=== PATIENT | female | born 1965 | race Caucasian/White ===

== ENCOUNTER 2016-07-31 18:18 | Emergency (ER) | payer OTHER ==
[2016-07-31 18:52] VITALS: TEMP 98.8
[2016-07-31] MEDS ORDERED: SODIUM CHLORIDE 0.9% 1,000 ML IV STA ×2 (19:01→19:06)
[2016-07-31] MEDS ORDERED: SODIUM CHLORIDE 0.9% 500 ML IV STA (19:06)
[2016-07-31 19:09] LABS: Glucose,Whole Blood 117 mg/dL (75-99)
--- NOTE | 2016-07-31 19:21 | ED ---
General Adult HPI - General Chief complaint: Dizziness Stated complaint: High blood pressure, diabetic Time Seen by Provider: 07/31/16 18:58 Source: patient, RN notes reviewed, old records reviewed Mode of arrival: wheelchair Limitations: no limitations - History of Present Illness Initial comments: This is a 50-year-old female here for evaluation. Patient immediately there is a possible he exhaustion. Patient states she does not feel well, was on the movement of both no air-conditioning. States she's been dehydrated and feels very thirsty, dry mucous membranes, no urinary output. - Related Data Home Medications Medication Instructions Recorded Confirmed ALPRAZolam [Xanax] 0.5 mg PO Q6H PRN 07/31/16 07/31/16 Aspirin 650 mg PO DAILY PRN 07/31/16 07/31/16 Baclofen [Lioresal] 20 mg PO Q4-6H 07/31/16 07/31/16 Baclofen [Lioresal] 40 mg PO HS 07/31/16 07/31/16 Dicyclomine [Bentyl] 20 mg PO QID 07/31/16 07/31/16 Furosemide [Lasix] 20 mg PO DAILY PRN 07/31/16 07/31/16 Gabapentin [Neurontin] 400 mg PO 5XD 07/31/16 07/31/16 HYDROcodone/APAP 7.5-325MG [[place] 1 tab PO Q8H PRN 07/31/16 07/31/16 7.5-325] Losartan [Cozaar] 50 mg PO DAILY 07/31/16 07/31/16 Magnesium Oxide [Magnesium] 500 mg PO BID 07/31/16 07/31/16 Medroxyprogesterone Acetate 150 mg IM Q90D 07/31/16 07/31/16 [Depo-Provera] Meloxicam 15 mg PO DAILY 07/31/16 07/31/16 Methylphenidate HCl [Ritalin] 5 mg PO TID 07/31/16 07/31/16 Metoprolol Tartrate [Lopressor] 100 mg PO BID 07/31/16 07/31/16 Multivit-Min/Iron/Folic/Lutein 1 tab PO DAILY 07/31/16 07/31/16 [Centrum Silver Women Tablet] Nortriptyline [Pamelor] 25 mg PO HS 07/31/16 07/31/16 Pseudoephedrine [Sudafed] 30 mg PO Q4H PRN 07/31/16 07/31/16 SUMAtriptan SUCCINATE [Imitrex] 100 mg PO BID PRN 07/31/16 07/31/16 metFORMIN HCL ER [Glucophage Xr] 500 mg PO BID 07/31/16 07/31/16 Allergies Allergy/AdvReac Type Severity Reaction Status Date / Time metronidazole [From Flagyl] Allergy Unknown Verified 07/31/16 19:34 morphine Allergy Unknown Verified 07/31/16 19:34 Review of Systems ROS Statement: Those systems with pertinent positive or pertinent negative responses have been documented in the HPI. ROS Other: All systems not noted in ROS Statement are negative. Past Medical History Past Medical History: Diabetes Mellitus, Hypertension Additional Past Medical History / Comment(s): neuropathy History of Any Multi-Drug Resistant Organisms: None Reported Past Surgical History: Section Additional Past Surgical History / Comment(s): vein stripping Past Psychological History: No Psychological Hx Reported Smoking Status: Current every day smoker Past Alcohol Use History: Occasional Past Drug Use History: None Reported General Exam Limitations: no limitations General appearance: alert, in no apparent distress Head exam: Present: atraumatic, normocephalic, normal inspection Eye exam: Present: normal appearance, PERRL, EOMI. Absent: scleral icterus, conjunctival injection, periorbital swelling ENT exam: Present: normal exam, mucous membranes moist Neck exam: Present: normal inspection. Absent: tenderness, meningismus, lymphadenopathy Respiratory exam: Present: normal lung sounds bilaterally. Absent: respiratory distress, wheezes, rales, rhonchi, stridor Cardiovascular Exam: Present: regular rate, normal rhythm, normal heart sounds. Absent: systolic murmur, diastolic murmur, rubs, gallop, clicks GI/Abdominal exam: Present: soft, normal bowel sounds. Absent: distended, tenderness, guarding, rebound, rigid Extremities exam: Present: normal inspection, full ROM, normal capillary refill. Absent: tenderness, pedal edema, joint swelling, calf tenderness Back exam: Present: normal inspection Neurological exam: Present: alert, oriented X3, CN II-XII intact Psychiatric exam: Present: normal affect, normal mood Skin exam: Present: warm, dry, intact, normal color. Absent: rash Course Vital Signs 07/31/16 07/31/16 18:47 20:42 Temperature 98.8 F Pulse Rate 70 78 Respiratory 20 16 Rate Blood Pressure 148/82 147/101 O2 Sat by Pulse 98 96 Oximetry - Reevaluation(s) Reevaluation #1: symptoms are resolved EKG Findings - EKG Comments: EKG Findings:: EKG shows normal sinus rhythm rate of 73, MA 180, QRS 90, QTc 456 Medical Decision Making - Medical Decision Making 50 female ot ED w dehydration and heat exhaustion at this point feeling better and asymptomatic, ok for discharfege - Lab Data Result diagrams: 07/31/16 19:20 07/31/16 19:20 Lab Results 07/31/16 07/31/16 07/31/16 Range/Units 19:08 19:20 19:20 WBC 11.5 H (3.8-10.6) k/uL RBC 4.68 (3.80-5.40) m/uL Hgb 15.6 (11.4-16.0) gm/dL Hct 47.4 H (34.0-46.0) % MCV 101.4 H (80.0-100.0) fL MCH 33.3 (25.0-35.0) pg MCHC 32.8 (31.0-37.0) g/dL RDW 12.6 (11.5-15.5) % Plt Count 241 (150-450) k/uL Neutrophils % 81 % Lymphocytes % 14 % Monocytes % 2 % Eosinophils % 1 % Basophils % 0 % Neutrophils # 9.3 H (1.3-7.7) k/uL Lymphocytes # 1.7 (1.0-4.8) k/uL Monocytes # 0.2 (0-1.0) k/uL Eosinophils # 0.2 (0-0.7) k/uL Basophils # 0.0 (0-0.2) k/uL PT (9.0-12.0) sec INR (<1.1) APTT (22.0-30.0) sec Sodium 142 (137-145) mmol/L Potassium 4.8 (3.5-5.1) mmol/L Chloride 107 (98-107) mmol/L Carbon Dioxide 22 (22-30) mmol/L Anion Gap 13 mmol/L BUN 17 (7-17) mg/dL Creatinine 0.87 (0.52-1.04) mg/dL Est GFR (MDRD) Af Amer >60 (>60 ml/min/1.73 sqM) Est GFR (MDRD) Non-Af >60 (>60 ml/min/1.73 sqM) Glucose 123 H (74-99) mg/dL POC Glucose (mg/dL) 117 H (75-99) mg/dL POC Glu [employer]st ID Noemi Reid Calcium 10.4 H (8.4-10.2) mg/dL Phosphorus 5.4 H (2.5-4.5) mg/dL Magnesium 2.5 H (1.6-2.3) mg/dL Total Bilirubin 0.9 (0.2-1.3) mg/dL AST 32 (14-36) U/L ALT 42 (9-52) U/L Alkaline Phosphatase 107 (38-126) U/L Total Creatine Kinase (30-135) U/L CK-MB (CK-2) (0.0-2.4) ng/mL CK-MB (CK-2) Rel Index Troponin I (0.000-0.034) ng/mL Total Protein 8.0 (6.3-8.2) g/dL Albumin 5.2 H (3.5-5.0) g/dL 07/31/16 07/31/16 Range/Units 19:20 19:22 WBC (3.8-10.6) k/uL RBC (3.80-5.40) m/uL Hgb (11.4-16.0) gm/dL Hct (34.0-46.0) % MCV (80.0-100.0) fL MCH (25.0-35.0) pg MCHC (31.0-37.0) g/dL RDW (11.5-15.5) % Plt Count (150-450) k/uL Neutrophils % % Lymphocytes % % Monocytes % % Eosinophils % % Basophils % % Neutrophils # (1.3-7.7) k/uL Lymphocytes # (1.0-4.8) k/uL Monocytes # (0-1.0) k/uL Eosinophils # (0-0.7) k/uL Basophils # (0-0.2) k/uL PT 10.3 (9.0-12.0) sec INR 1.0 (<1.1) APTT 22.2 (22.0-30.0) sec Sodium (137-145) mmol/L Potassium (3.5-5.1) mmol/L Chloride (98-107) mmol/L Carbon Dioxide (22-30) mmol/L Anion Gap mmol/L BUN (7-17) mg/dL Creatinine (0.52-1.04) mg/dL Est GFR (MDRD) Af Amer (>60 ml/min/1.73 sqM) Est GFR (MDRD) Non-Af (>60 ml/min/1.73 sqM) Glucose (74-99) mg/dL POC Glucose (mg/dL) (75-99) mg/dL POC Glu [employer]rm Business Analyst ID Calcium (8.4-10.2) mg/dL Phosphorus (2.5-4.5) mg/dL Magnesium (1.6-2.3) mg/dL Total Bilirubin (0.2-1.3) mg/dL AST (14-36) U/L ALT (9-52) U/L Alkaline Phosphatase (38-126) U/L Total Creatine Kinase 129 (30-135) U/L CK-MB (CK-2) 1.9 (0.0-2.4) ng/mL CK-MB (CK-2) Rel Index 1.5 Troponin I <0.012 (0.000-0.034) ng/mL Total Protein (6.3-8.2) g/dL Albumin (3.5-5.0) g/dL Disposition Clinical Impression: Dehydration, Heat exhaustion Disposition: HOME SELF-CARE Condition: Good Instructions: Heat Exhaustion (ED) Referrals: Mauricio Mendoza DO [Primary Care Provider] - 1-2 days
[2016-07-31 19:48] LABS: Basophils % (A) 0 %; CH 34.1; CHCM 33.7; Eosinophils # (A) 0.2 k/uL (0-0.7); Eosinophils % (A) 1 %; HCT 47.4 % (34.0-46.0); HDW 2.29; HGB 15.6 gm/dL (11.4-16.0); Luc % (Auto) 1; Lymphocytes # (A) 1.7 k/uL (1.0-4.8); Lymphocytes % (A) 14 %; MCH 33.3 pg (25.0-35.0); MCHC 32.8 g/dL (31.0-37.0); MCV 101.4 fL (80.0-100.0); Mean Platelet Volume 7.1; Monocytes # (A) 0.2 k/uL (0-1.0); Monocytes % (A) 2 %; Neutrophils # (A) 9.3 k/uL (1.3-7.7); Neutrophils % (A) 81 %; RBC 4.68 m/uL (3.80-5.40); RDW 12.6 % (11.5-15.5); WBC 11.5 k/uL (3.8-10.6); WBC (Perox) 11.16
[2016-07-31 19:55] LABS: ALT 42 U/L (9-52); AST 32 U/L (14-36); Alkaline Phosphatase 107 U/L (38-126); Anion Gap 13 mmol/L; Blood Urea Nitrogen 17 mg/dL (7-17); Calcium 10.4 mg/dL (8.4-10.2); Carbon Dioxide 22 mmol/L (22-30); Chloride 107 mmol/L (98-107); Glucose 123 mg/dL (74-99); Magnesium 2.5 mg/dL (1.6-2.3); Non-African American GFR(MDRD) >60 (>60 ml/min/1.73 sqM); Phosphorous 5.4 mg/dL (2.5-4.5); Potassium 4.8 mmol/L (3.5-5.1); Sodium 142 mmol/L (137-145); Total Bilirubin 0.9 mg/dL (0.2-1.3)
[2016-07-31 19:56] LABS: Partial Thromboplastin Time 22.2 sec (22.0-30.0); Prothrombin Time 10.3 sec (9.0-12.0)
[2016-07-31 20:13] LABS: Creatine Kinase 129 U/L (30-135)
[2016-07-31 20:25] LABS: Creatine Kinase MB 1.9 ng/mL (0.0-2.4); Troponin I <0.012 ng/mL (0.000-0.034)
[2016-07-31 20:43] VITALS: BP 147/101; PULSE 78; RESP 16
== END 2016-07-31 20:43 | disposition home or self-care (01) ==
LOC: EC 18:18
DX: T67.5XXA Heat exhaustion, unspecified, initial encounter (principal); E86.0 Dehydration; E11.9 Type 2 diabetes mellitus without complications; I10 Essential (primary) hypertension; G62.9 Polyneuropathy, unspecified; F17.200 Nicotine dependence, unspecified, uncomplicated; Z79.84 Long term (current) use of oral hypoglycemic drugs; Z79.899 Other long term (current) drug therapy; Z88.5 Allergy status to narcotic agent; Z88.1 Allergy status to other antibiotic agents; X30.XXXA Exposure to excessive natural heat, initial encounter
CPT/HCPCS: 36415; 80053; 82550; 82553; 83735; 84100; 84484; 85025; 85610; 85730; 93005; 96360; 99284

== ENCOUNTER 2016-10-04 13:27 | Emergency (ER) | payer OTHER ==
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
[2016-10-04 14:51] VITALS: RESP 16
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
[2016-10-04 16:24] VITALS: BP 120/70; PULSE 65; TEMP 98.3
== END 2016-10-04 16:24 | disposition home or self-care (01) ==
LOC: EC 13:27
DX: R51 Headache (principal); M54.2 Cervicalgia; M25.552 Pain in left hip; M25.512 Pain in left shoulder; E11.40 Type 2 diabetes mellitus with diabetic neuropathy, unspecified; I10 Essential (primary) hypertension; F17.200 Nicotine dependence, unspecified, uncomplicated; Z88.1 Allergy status to other antibiotic agents; Z88.5 Allergy status to narcotic agent; Z79.84 Long term (current) use of oral hypoglycemic drugs; Z79.891 Long term (current) use of opiate analgesic; Z79.899 Other long term (current) drug therapy; V47.5XXA Car driver injured in collision with fixed or stationary object in traffic accident, initial encounter; W22.11XA Striking against or struck by driver side automobile airbag, initial encounter; Y92.411 Interstate highway as the place of occurrence of the external cause
CPT/HCPCS: 70450; 71020; 72125; 73502; 99284

== ENCOUNTER 2020-12-01 11:42 | Emergency (ER) | payer BC, OTHER ==
[2020-12-01 11:55] VITALS: RESP 16; TEMP 98.3
[2020-12-01 12:03] VITALS: PULSE 71
[2020-12-01] MEDS ORDERED: SODIUM CHLORIDE 0.9% 1,000 ML IV ONE (12:20)
--- NOTE | 2020-12-01 12:45 | ED ---
General Adult HPI - General Chief complaint: Syncope Stated complaint: Tired, not feeling right, bradycardia Time Seen by Provider: 12/01/20 12:00 Source: patient, EMS, RN notes reviewed, old records reviewed Mode of arrival: EMS Limitations: no limitations - History of Present Illness Initial comments: This is a 55-year-old female who presents emergency Department after having a near syncopal episode. Patient states she was walking to her doctor's office and her legs got really weak and she went to the ground she stayed awake the whole time but she felt like she might pass out. Patient denies any blurred vision. Patient denies headache patient denies any numbness or focal weakness. Patient denies chest pain difficulty breathing shortness of breath. Patient denies any abdominal pain patient denies nausea vomiting diarrhea. Patient states she does have some sinus drainage lately and she has been fighting what she believes to be a urinary tract infection with some dysuria. Patient also sometimes some urinary frequency. Patient denies any back pain. - Related Data Home Medications Medication Instructions Recorded Confirmed ALPRAZolam [Xanax] 0.5 mg PO BID 07/31/16 10/04/16 Aspirin 650 mg PO DAILY PRN 07/31/16 10/04/16 Baclofen [Lioresal] 20 mg PO Q4-6H 07/31/16 10/04/16 Baclofen [Lioresal] 40 mg PO HS 07/31/16 10/04/16 Dicyclomine [Bentyl] 20 mg PO QID 07/31/16 10/04/16 Furosemide [Lasix] 20 mg PO DAILY PRN 07/31/16 10/04/16 Gabapentin [Neurontin] 400 mg PO 5XD 07/31/16 10/04/16 HYDROcodone/APAP 7.5-325MG [[place] 1 tab PO Q8H PRN 07/31/16 10/04/16 7.5-325] Losartan [Cozaar] 50 mg PO DAILY 07/31/16 10/04/16 Magnesium Oxide [Magnesium] 500 mg PO BID 07/31/16 10/04/16 Medroxyprogesterone Acetate 150 mg IM Q90D 07/31/16 10/04/16 [Depo-Provera] Meloxicam 15 mg PO DAILY 07/31/16 10/04/16 Metoprolol Tartrate [Lopressor] 100 mg PO BID 07/31/16 10/04/16 Multivit-Min/Iron/Folic/Lutein 1 tab PO DAILY 07/31/16 10/04/16 [Centrum Silver Women Tablet] Nortriptyline [Pamelor] 25 mg PO HS 07/31/16 10/04/16 Pseudoephedrine [Sudafed] 30 mg PO Q4H PRN 07/31/16 10/04/16 SUMAtriptan SUCCINATE [Imitrex] 100 mg PO BID PRN 07/31/16 10/04/16 metFORMIN HCL ER [Glucophage Xr] 500 mg PO BID 07/31/16 10/04/16 ALPRAZolam [Xanax] 1 mg PO HS 10/04/16 10/04/16 Previous Rx's Medication Instructions Recorded Amoxicillin/Potassium Clav 1 each PO Q12HR #28 tab 12/01/20 [Augmentin 875-125 Tablet] Allergies Allergy/AdvReac Type Severity Reaction Status Date / Time metronidazole [From Flagyl] Allergy Unknown Verified 10/04/16 13:34 morphine Allergy Unknown Verified 10/04/16 13:34 Review of Systems ROS Statement: Those systems with pertinent positive or pertinent negative responses have been documented in the HPI. ROS Other: All systems not noted in ROS Statement are negative. Past Medical History Past Medical History: Diabetes Mellitus, Hypertension Additional Past Medical History / Comment(s): neuropathy, Reynaud's disease. History of Any Multi-Drug Resistant Organisms: None Reported Past Surgical History: Section Additional Past Surgical History / Comment(s): vein stripping Past Psychological History: No Psychological Hx Reported Smoking Status: Former smoker Past Alcohol Use History: Occasional Past Drug Use History: None Reported General Exam - General Exam Comments Initial Comments: GENERAL: Patient is well-developed and well-nourished. Patient is nontoxic and well- hydrated and is in mild distress. ENT: Neck is soft and supple. No significant lymphadenopathy is noted. Oropharynx is clear. Moist mucous membranes. Neck has full range of motion without eliciting any pain. EYES: The sclera were anicteric and conjunctiva were pink and moist. Extraocular movements were intact and pupils were equal round and reactive to light. Eyelids were unremarkable. PULMONARY: Unlabored respirations. Good breath sounds bilaterally. No audible rales rhonchi or wheezing was noted. CARDIOVASCULAR: There is a regular rate and rhythm without any murmurs gallops or rubs. ABDOMEN: Soft and nontender with normal bowel sounds. SKIN: Skin is clear with no lesions or rashes and otherwise unremarkable. NEUROLOGIC: Patient is alert and oriented x3. Cranial nerves II through XII are grossly intact. Motor and sensory are also intact. Normal speech, volume and content. Symmetrical smile. MUSCULOSKELETAL: Normal extremities with adequate strength and full range of motion. LYMPHATICS: No significant lymphadenopathy is noted PSYCHIATRIC: Normal psychiatric evaluation. Limitations: no limitations Course Vital Signs 12/01/20 12/01/20 12/01/20 11:48 11:55 11:57 Temperature 98.3 F 98.3 F Pulse Rate 56 L 71 Pulse Rate [ 69 Left Pulse Oximetery] Respiratory 16 16 Rate Blood Pressure 88/56 99/63 103/61 Blood Pressure [Left Arm Sitting] Blood Pressure [Left Arm Standing] Blood Pressure [Left Arm Supine] O2 Sat by Pulse 92 L 94 L Oximetry 12/01/20 12/01/20 12/01/20 12:34 13:08 14:43 Temperature Pulse Rate Pulse Rate [ Left Pulse Oximetery] Respiratory Rate Blood Pressure 121/75 99/57 Blood Pressure 90/57 [Left Arm Sitting] Blood Pressure 74/51 [Left Arm Standing] Blood Pressure 77/55 [Left Arm Supine] O2 Sat by Pulse Oximetry Medical Decision Making - Medical Decision Making EKG shows normal sinus rhythm at 60 bpm WV interval is 162 QRS is under QT intervals 442 QTC is 469. Patient's EKG shows no ST segment elevation or depression. Patient's x-ray of the ankle shows no dislocation or fracture. Patient was able to ambulate after we wrapped the ankle and an Sujit wrap. Patient was started on Rocephin here for a urinary tract infection and cultures were sent. Patient had a little bit low blood pressure when she arrived but when I investigated further she had told me she took her first blood pressure medication about 3:00 or little after 3:00 in the morning which she normally does but she took her second dose early today at about 10 AM. - Lab Data Result diagrams: 12/01/20 12:32 12/01/20 12:32 Lab Results 12/01/20 12/01/20 12/01/20 Range/Units 12:32 12:32 12:32 WBC 3.1 L (3.8-10.6) k/uL RBC 3.86 (3.80-5.40) m/uL Hgb 12.5 (11.4-16.0) gm/dL Hct 38.0 (34.0-46.0) % MCV 98.4 (80.0-100.0) fL MCH 32.5 (25.0-35.0) pg MCHC 33.0 (31.0-37.0) g/dL RDW 12.2 (11.5-15.5) % Plt Count 120 L (150-450) k/uL MPV 8.9 Neutrophils % 76 % Lymphocytes % 20 % Monocytes % 3 % Eosinophils % 0 % Basophils % 0 % Neutrophils # 2.4 (1.3-7.7) k/uL Lymphocytes # 0.6 L (1.0-4.8) k/uL Monocytes # 0.1 (0-1.0) k/uL Eosinophils # 0.0 (0-0.7) k/uL Basophils # 0.0 (0-0.2) k/uL PT 10.0 (9.0-12.0) sec INR 0.9 (<1.2) APTT 22.6 (22.0-30.0) sec Sodium 137 (137-145) mmol/L Potassium 4.0 (3.5-5.1) mmol/L Chloride 104 (98-107) mmol/L Carbon Dioxide 23 (22-30) mmol/L Anion Gap 10 mmol/L BUN 22 H (7-17) mg/dL Creatinine 0.78 (0.52-1.04) mg/dL Est GFR (CKD-EPI)AfAm >90 (>60 ml/min/1.73 sqM) Est GFR (CKD-EPI)NonAf 85 (>60 ml/min/1.73 sqM) Glucose 115 H (74-99) mg/dL Calcium 8.1 L (8.4-10.2) mg/dL Magnesium 2.0 (1.6-2.3) mg/dL Total Bilirubin 0.4 (0.2-1.3) mg/dL AST 44 H (14-36) U/L ALT 29 (4-34) U/L Alkaline Phosphatase 72 (38-126) U/L Troponin I (0.000-0.034) ng/mL Total Protein 6.1 L (6.3-8.2) g/dL Albumin 3.6 (3.5-5.0) g/dL Urine Color Urine Appearance (Clear) Urine pH (5.0-8.0) Ur Specific [place] (1.001-1.035) Urine Protein (Negative) Urine Glucose (UA) (Negative) Urine Ketones (Negative) Urine Blood (Negative) Urine Nitrite (Negative) Urine Bilirubin (Negative) Urine Urobilinogen (<2.0) mg/dL Ur Leukocyte Esterase (Negative) Urine RBC (0-5) /hpf Urine WBC (0-5) /hpf Ur Squamous Epith Cells (0-4) /hpf Urine Bacteria (None) /hpf Cellular Casts (0) /lpf Hyaline Casts (0-2) /lpf Urine Mucus (None) /hpf 12/01/20 12/01/20 Range/Units 12:32 12:37 WBC (3.8-10.6) k/uL RBC (3.80-5.40) m/uL Hgb (11.4-16.0) gm/dL Hct (34.0-46.0) % MCV (80.0-100.0) fL MCH (25.0-35.0) pg MCHC (31.0-37.0) g/dL RDW (11.5-15.5) % Plt Count (150-450) k/uL MPV Neutrophils % % Lymphocytes % % Monocytes % % Eosinophils % % Basophils % % Neutrophils # (1.3-7.7) k/uL Lymphocytes # (1.0-4.8) k/uL Monocytes # (0-1.0) k/uL Eosinophils # (0-0.7) k/uL Basophils # (0-0.2) k/uL PT (9.0-12.0) sec INR (<1.2) APTT (22.0-30.0) sec Sodium (137-145) mmol/L Potassium (3.5-5.1) mmol/L Chloride (98-107) mmol/L Carbon Dioxide (22-30) mmol/L Anion Gap mmol/L BUN (7-17) mg/dL Creatinine (0.52-1.04) mg/dL Est GFR (CKD-EPI)AfAm (>60 ml/min/1.73 sqM) Est GFR (CKD-EPI)NonAf (>60 ml/min/1.73 sqM) Glucose (74-99) mg/dL Calcium (8.4-10.2) mg/dL Magnesium (1.6-2.3) mg/dL Total Bilirubin (0.2-1.3) mg/dL AST (14-36) U/L ALT (4-34) U/L Alkaline Phosphatase (38-126) U/L Troponin I <0.012 (0.000-0.034) ng/mL Total Protein (6.3-8.2) g/dL Albumin (3.5-5.0) g/dL Urine Color Yellow Urine Appearance Clear (Clear) Urine pH 5.5 (5.0-8.0) Ur Specific [place] 1.031 (1.001-1.035) Urine Protein 1+ H (Negative) Urine Glucose (UA) Negative (Negative) Urine Ketones Negative (Negative) Urine Blood Negative (Negative) Urine Nitrite Negative (Negative) Urine Bilirubin Negative (Negative) Urine Urobilinogen <2.0 (<2.0) mg/dL Ur Leukocyte Esterase Moderate H (Negative) Urine RBC 3 (0-5) /hpf Urine WBC 13 H (0-5) /hpf Ur Squamous Epith Cells <1 (0-4) /hpf Urine Bacteria Rare H (None) /hpf Cellular Casts 3 (0) /lpf Hyaline Casts 6 H (0-2) /lpf Urine Mucus Rare H (None) /hpf Disposition Clinical Impression: Orthostatic hypotension, Urinary tract infection, Left ankle sprain Disposition: HOME SELF-CARE Condition: Good Additional Instructions: Patient should ambulate as tolerated if she is unable to ambulate she should follow-up with orthopedics. Patient should continue Augmentin until the medication is gone. Patient should take her blood pressure medications 12 hours apart. Prescriptions: Amoxicillin/Potassium Clav [Augmentin 875-125 Tablet] 1 each PO Q12HR #28 tab Is patient prescribed a controlled substance at d/c from ED?: No Referrals: Mauricio Mendoza DO [Primary Care Provider] - 1-2 days
[2020-12-01 13:11] LABS: Basophils % (A) 0 %; Eosinophils % (A) 0 %; HGB 12.5 gm/dL (11.4-16.0); INR 0.9 (<1.2); Lymphocytes # (A) 0.6 k/uL (1.0-4.8); Lymphocytes % (A) 20 %; MCH 32.5 pg (25.0-35.0); MCV 98.4 fL (80.0-100.0); Mean Platelet Volume 8.9; Monocytes # (A) 0.1 k/uL (0-1.0); Monocytes % (A) 3 %; Neutrophils # (A) 2.4 k/uL (1.3-7.7); Neutrophils % (A) 76 %; Partial Thromboplastin Time 22.6 sec (22.0-30.0); Platelet Count 120 k/uL (150-450); RBC 3.86 m/uL (3.80-5.40); RDW 12.2 % (11.5-15.5); WBC 3.1 k/uL (3.8-10.6)
[2020-12-01 13:16] LABS: ALT 29 U/L (4-34); AST 44 U/L (14-36); African American GFR (CKD) >90 (>60 ml/min/1.73 sqM); Albumin 3.6 g/dL (3.5-5.0); Alkaline Phosphatase 72 U/L (38-126); Anion Gap 10 mmol/L; Blood Urea Nitrogen 22 mg/dL (7-17); Calcium 8.1 mg/dL (8.4-10.2); Carbon Dioxide 23 mmol/L (22-30); Chloride 104 mmol/L (98-107); Glucose 115 mg/dL (74-99); Non-African American GFR(CKD) 85 (>60 ml/min/1.73 sqM); Sodium 137 mmol/L (137-145); Total Bilirubin 0.4 mg/dL (0.2-1.3); Total Protein 6.1 g/dL (6.3-8.2)
[2020-12-01 13:20] LABS: Appearance,Urine Clear (Clear); Bacteria,Urine Rare /hpf; Bilirubin,Urine Negative (Negative); Blood,Urine Negative (Negative); Cellular Casts,Urine 3 /lpf (0); Color,Urine Yellow; Glucose,Urine (UA) Negative (Negative); Hyaline Casts,Urine 6 /lpf (0-2); Ketones,Urine Negative (Negative); Leukocyte Esterase,Urine Moderate (Negative); Mucus,Urine Rare /hpf; Nitrite,Urine Negative (Negative); PH, Urine 5.5 (5.0-8.0); Protein,Urine 1+ (Negative); RBC,Urine 3 /hpf (0-5); Specific Gravity,Urine 1.031 (1.001-1.035); Squamous Epithelial Cell,Urine <1 /hpf (0-4); Urobilinogen,Urine <2.0 mg/dL (<2.0); WBC,Urine 13 /hpf (0-5)
--- NOTE | 2020-12-01 13:36 | XR ---
EXAMINATION TYPE: XR ankle complete LT DATE OF EXAM: 12/01/2020 COMPARISON: NONE HISTORY: Pain FINDINGS: Three views of the ankle demonstrate the ankle mortise to be intact and symmetric. The joint spaces are preserved. The osseous structures are intact. There is a area of soft tissue edema involving th e lateral margin of the ankle. There is a metallic linear wire or lead along the medial margin the ti fiorella which be correlated clinically and appears posterior in the lateral view and appears to be within the soft tissues. Calcaneal spur noted. IMPRESSION: 1. No definite acute fracture or dislocation, if symptoms persist follow-up study in 7 to 10 days wou ld be suggested. Extensive soft tissue edema laterally with no definite fracture line. 2. Metallic linear marker apparently within the soft tissues posterior and medial to the distal tibia correlate clinically. Correlate for implanted device otherwise consider foreign body.
--- NOTE | 2020-12-01 13:39 | XR ---
EXAMINATION TYPE: XR chest 2V DATE OF EXAM: 12/01/2020 COMPARISON: 10/04/2016 TECHNIQUE: PA and lateral views submitted. HISTORY: Cough and weakness FINDINGS: The lungs are clear and there is no pneumothorax, pleural effusion, or focal pneumonia. Artery is e nlarged and there is reduced inspiration. There is hyper changes of the spine. Diffuse interstitial p attern. Subsegmental changes left lung base. Chronic rib deformity noted. IMPRESSION: 1. Prominent interstitial pattern correlate for interstitial pulmonary fibrosis. Interstitium appears stable from prior exam. 2. Subsegmental changes left lung base. Atelectasis favored over pneumonia.
[2020-12-01] MEDS ORDERED: cefTRIAXone IN SWFI 1,000 MG/10 ML SYRINGE IVP STA (13:46)
[2020-12-01] MEDS ORDERED: KETOROLAC 15 MG/ML 1 ML VIAL IVP STA (13:53)
[2020-12-01 14:43] VITALS: BP 99/57
== END 2020-12-01 15:07 | disposition home or self-care (01) ==
LOC: EC 11:42
DX: S93.402A Sprain of unspecified ligament of left ankle, initial encounter (principal); N39.0 Urinary tract infection, site not specified; I95.1 Orthostatic hypotension; R00.1 Bradycardia, unspecified; E11.9 Type 2 diabetes mellitus without complications; I10 Essential (primary) hypertension; Z88.5 Allergy status to narcotic agent; Z87.891 Personal history of nicotine dependence; Z88.1 Allergy status to other antibiotic agents; Z79.84 Long term (current) use of oral hypoglycemic drugs; X58.XXXA Exposure to other specified factors, initial encounter; Y93.01 Activity, walking, marching and hiking
CPT/HCPCS: 36415; 93005; 80053; 83735; 84484; 85025; 85610; 85730; 81001; 87086; 87077; 87186; 73610; 71046; 99284; 96374; 96375; 96361; J0696; J1885